=== PATIENT | male | born 1990 | race African-American/Black ===

== ENCOUNTER 2019-03-24 14:16 | Emergency (ER) | payer MEDICAID ==
[~2019-03-24] VITALS: Ht 167.6 cm; Wt 83.9 kg
[2019-03-24 14:18] VITALS: BP_SYST 163
[2019-03-24] MEDS ORDERED: DIPHENHYDRAMINE INJ 50 MG/ML VIAL IM ONE (14:30)
[2019-03-24] MEDS ORDERED: LORazepam 2 MG/ML VIAL IM ONE ×2 (14:30→14:45)
[2019-03-24] MEDS ORDERED: HALOPERIDOL LACTATE 5 MG/ML VIAL IM ONE (14:30)
[2019-03-24] MEDS ORDERED: HALOPERIDOL LACTATE 5 MG/ML VIAL ONE (14:34)
[2019-03-24] MEDS ORDERED: LORazepam 2 MG/ML VIAL ONE (14:34)
[2019-03-24] MEDS ORDERED: DIPHENHYDRAMINE INJ 50 MG/ML VIAL ONE (14:34)
[2019-03-24 15:37] LABS: BASOPHILS % (AUTO) 0.6 % (0.0-2.0); EOSINOPHILS # (AUTO) 0.2 K/uL (0.0-0.4); EOSINOPHILS % (AUTO) 2.6 % (0.0-4.0); HEMATOCRIT 38.1 % (36-54); HEMOGLOBIN 12.3 g/dL (14.0-18.0); LYMPHOCYTES # (AUTO) 0.7 K/uL (1.0-5.5); LYMPHOCYTES % (AUTO) 11.1 % (20.5-51.5); MEAN CORPUSCULAR HEMOGLOBIN 27 pg (27-31); MEAN CORPUSCULAR HGB CONC 32 % (32-36); MEAN CORPUSCULAR VOLUME 85 fL (79.0-98.0); MONOCYTES # (AUTO) 0.3 K/uL (0.0-1.0); NEUTROPHILS # (AUTO) 5.2 K/uL (1.8-7.7); NEUTROPHILS % (AUTO) 80.7 % (40.0-70.0); PLATELET COUNT (AUTO) 308 K/uL (130-430); RED BLOOD CELL COUNT(AUTO) 4.48 MIL/uL (4.2-6.2); RED CELL DISTRIBUTION WIDTH 14.3 % (9.0-15.0); WHITE BLOOD COUNT (AUTO) 6.5 K/uL (4.8-10.8)
[2019-03-24 15:57] LABS: CALCIUM 8.6 mg/dL (8.4-11.0); CREATININE 1.27 mg/dL (0.55-1.30); POTASSIUM 3.1 mmol/L (3.5-5.1)
[2019-03-24 16:01] LABS: ALBUMIN 4.1 g/dL (3.4-4.8); TOTAL BILIRUBIN 0.4 mg/dL (0.0-1.0)
[2019-03-24] MEDS ORDERED: POTASSIUM CHLORIDE 20 MEQ TAB.PRT.SR PO ONE (16:30)
[2019-03-24 17:00] VITALS: BP_SYST 124
== END 2019-03-24 16:50 ==
LOC: SED 14:16
DX: Z02.89 Encounter for other administrative examinations (principal); R45.1 Restlessness and agitation
CPT/HCPCS: 36415; 71045; 80053; 85025; 96372; 99284; J1200; J1630; J2060